=== PATIENT | male | born 1985 | race Caucasian/White ===

== ENCOUNTER 2020-10-06 08:39 | Outpatient (CLI) | payer MEDICARE, MEDICAID, SELFPAY | END 2020-10-06 08:40 | disposition home or self-care (01) | PROVIDERS: PCP Family Medicine; Visit Provider Family Medicine | DX: H91.93 Unspecified hearing loss, bilateral (principal) | CPT/HCPCS: 92557; 92567 ==

== ENCOUNTER 2022-05-23 11:02 | Outpatient (CLI) | payer MEDICARE, MEDICAID, SELFPAY | END 2022-05-23 11:03 | disposition home or self-care (01) | LOC: ANHAUDIO 11:03 | PROVIDERS: PCP Family Medicine | DX: H90.41 Sensorineural hearing loss, unilateral, right ear, with unrestricted hearing on the contralateral side (principal) | CPT/HCPCS: 92557; 92567 ==